=== PATIENT | male | born 2000 | race Caucasian/White ===

== ENCOUNTER 2025-06-09 10:46 | Inpatient (IN) | payer OTHER, MEDICAID ==
[~2025-06-09] VITALS: Ht 167.6 cm; Wt 61.6 kg
[2025-06-09 11:27] LABS: PLATELET COUNT, AUTOMATED 216 10^3/uL (150-450)
[2025-06-09 11:55] LABS: ETHYL ALCOHOL (ETHANOL) < 0.003 % (0.000-0.010)
[2025-06-09 11:57] LABS: ALT/SGPT < 9 U/L (7.0-40); AST/SGOT 23 U/L (<34); CALCIUM LEVEL 10.0 MG/DL (8.5-10.1); CARBON DIOXIDE LEVEL 28 MMOL/L (20-31); CHLORIDE LEVEL 106 MMOL/L (98-107); CREATININE FOR GFR 0.83 MG/DL (0.70-1.30); GLOMERULAR FILTRATION RATE > 90.0 (>60); POTASSIUM SERUM 4.1 MMOL/L (3.5-5.1); SALICYLATE LEVEL < 3.0 MG/DL (<30); SODIUM LEVEL 143 MMOL/L (136-145)
[2025-06-09 12:08] LABS: AMPHETAMINES LEVEL URINE NEGATIVE (NEGATIVE); BARBITURATES URINE NEGATIVE (NEGATIVE); CANNABINOIDS URINE NEGATIVE (NEGATIVE); COCAINE METABOLITE URINE NEGATIVE (NEGATIVE); METHADONE URINE NEGATIVE (NEGATIVE); OPIATES URINE NEGATIVE (NEGATIVE); PHENCYCLIDINE URINE NEGATIVE (NEGATIVE)
[2025-06-09 12:09] LABS: BENZODIAZEPINES URINE NEGATIVE (NEGATIVE)
[2025-06-09] MEDS ORDERED: HOME MED LIST COMPLETE! XX SCH (13:50)
[2025-06-09] MEDS ORDERED: MAALOX 30 ML SUSP *UDC PO PRN (15:35)
[2025-06-09] MEDS ORDERED: IBUPROFEN 400 MG TAB PO PRN (15:35)
[2025-06-09] MEDS ORDERED: ACETAMINOPHEN 325 MG TAB PO PRN (15:35)
[2025-06-09] MEDS ORDERED: traZODone 50 MG TAB PO PRN (15:35)
[2025-06-09] MEDS ORDERED: MOM 30 ML SUSPENSION UDC PO PRN (15:35)
[2025-06-09 16:20] VITALS: BP 133/63; TEMP 98.5; O2SAT 100
[2025-06-10 06:49] VITALS: BP 132/68; TEMP 97.6; O2SAT 100
[2025-06-11 06:49] VITALS: BP 129/74; TEMP 97.1; O2SAT 100
== END 2025-06-11 10:03 | disposition home or self-care (01) | DRG 756 ==
LOC: M ED 10:46 → M ED INP 15:31 → M PSY 16:55
PROVIDERS: ADMIT General Practice; ATTEND General Practice
DX: F41.1 Generalized anxiety disorder (principal); R45.851 Suicidal ideations; Z56.0 Unemployment, unspecified; Z63.8 Other specified problems related to primary support group